=== PATIENT | male | born 1980 | race Caucasian/White ===

== ENCOUNTER 2024-04-16 15:31 | Outpatient (CLI) | payer SELFPAY | END 2024-04-16 15:32 | disposition home or self-care (01) | PROVIDERS: Visit Provider Family Medicine | DX: E83.118 Other hemochromatosis (principal) | CPT/HCPCS: 36415; 99195 ==

== ENCOUNTER 2024-04-30 17:39 | Outpatient (CLI) | payer SELFPAY | END 2024-04-30 17:40 | disposition home or self-care (01) | LOC: LAB 17:40 | PROVIDERS: Visit Provider Emergency Medicine | DX: E83.118 Other hemochromatosis (principal) | CPT/HCPCS: 36415; 99195 ==